=== PATIENT | male | born 2000 | race Caucasian/White ===

== ENCOUNTER 2018-07-17 13:53 | Emergency (ER) | payer BC ==
--- NOTE | 2018-07-17 14:27 | UC ---
Complaint Male HPI - HPI Summary HPI Summary: 18 yo male presents with urinary symptoms. He tells me that he is experiencing itching and "discomfort" at the end of his urethra over the last 4 days. Discomfort is most noticeable during urination. Has also been feeling more tired recently. He had unprotected sex about 2 weeks ago with a new partner - he has contacted her and she says she has no symptoms. Pt has had chlamydia in the past and says this feels similar. Denies fever, chills, hematuria, penile discharge, or testicular/scrotum tenderness. - History of Current Complaint Chief Complaint: UCGU Stated Complaint: PERSONAL Time Seen by Provider: 07/17/18 14:27 Hx Obtained From: Patient Severity Initially: Moderate Severity Currently: Moderate Pain Intensity: 5 Pain Scale Used: 0-10 Numeric - Allergies/Home Medications Allergies/Adverse Reactions: Allergies Allergy/AdvReac Type Severity Reaction Status Date / Time No Known Allergies Allergy Verified 07/17/18 14:09 Home Medications: Home Medications NK [No Home Medications Reported] 07/17/18 [History Confirmed 07/17/18] PMH/Surg Hx/FS Hx/Imm Hx - Additional Past Medical History Additional PMH: None - Surgical History Surgical History: Yes Surgery Procedure, Year, and Place: wisdom tooth removal, adenoidectomy - Family History Known Family History: Positive: None - Social History Occupation: Student Lives: Dormitory/Roommates Alcohol Use: Occasionally Substance Use Type: None Smoking Status (MU): Never Smoked Tobacco Review of Systems Constitutional: Negative Skin: Negative Respiratory: Negative Cardiovascular: Negative Gastrointestinal: Negative Genitourinary: Vaginal/Penile Itching Neurovascular: Negative Neurological: Negative Psychological: Negative All Other Systems Reviewed And Are Negative: Yes Physical Exam - Summary Physical Exam Summary: GENERAL: NAD. WDWN. No pain distress. SKIN: No rashes, sores, lesions, or open wounds. NECK: Supple. Nontender. No lymphadenopathy. CHEST: CTAB. No r/r/w. No accessory muscle use. Breathing comfortably and in no distress. CV: RRR. Without m/r/g. Pulses intact. Cap refill <2seconds ABDOMEN: Soft. NTTP. No distention or guarding. No CVA tenderness. Bowel sounds present NEURO: Alert. PSYCH: Age appropriate behavior. Triage Information Reviewed: Yes Vital Signs: Initial Vital Signs Temp 98.3 F 07/17/18 14:04 Pulse 59 07/17/18 14:04 Resp 18 07/17/18 14:04 BP 123/87 07/17/18 14:04 Pulse Ox 100 07/17/18 14:04 Laboratory Tests 07/17/18 14:34 POC Urine Color Yellow POC Urine Clarity Clear POC Urine pH 7.5 POC Ur Specif Hiller 1.015 POC Urine Protein Negative POC Ur Glucose (UA) Negative POC Urine Ketones Negative POC Urine Blood Negative POC Urine Nitrite Negative POC Urine Bilirubin Negative POC Urine Urobilinogen 0.2 POC U Leukocyte Esteras Negative Vital Signs Reviewed: Yes Male Genital Exam: Positive: Normal Genitalia, No Hernia, Other - No LAD. Negative: Epididymal Tenderness, Inguinal Tenderness, Scrotum Tenderness (R), Scrotum Tenderness (L), Testicular Tenderness (R), Testicular Tenderness (L), Urethral Discharge Complaint Male Course/Dx - Course Course Of Treatment: Options were discussed with the pt that his symptoms could be related to a GC/C infection. We discussed treatment now with testing or holding treatment and testing first. Pt elected to have treatment today and send urine for testing. He is also asking for HIV testing, but declines further labwork/STD testing. He was treated for GC/C with 250mg ceftriaxone and 1gm of azithromycin in the clinical course. Urine was sent. - Differential Dx/Diagnosis Provider Diagnoses: Dysuria. Unprotected intercourse Discharge - Sign-Out/Discharge Documenting (check all that apply): Patient Departure All imaging exams completed and their final reports reviewed: No Studies - Discharge Plan Condition: Stable Disposition: HOME Patient Education Materials: Safe Sex (ED) Referrals: No Primary Care Phys,NOPCP [Primary Care Provider] - Additional Instructions: If you develop a fever, shortness of breath, chest pain, new or worsening symptoms - please call your PCP or go to the ED. - Billing Disposition and Condition Condition: STABLE Disposition: Home
[2018-07-17] MEDS ORDERED: Azithromycin TAB* 250 MG PO ONE (14:44)
[2018-07-17] MEDS ORDERED: cefTRIAXone VIAL(*) 250 MG VIAL IM ONE (14:44)
[2018-07-17] MEDS ORDERED: Lidocaine 1% MPF* 2 ML VIAL INJ ONE (14:44)
[2018-07-17] MEDS ORDERED: Lidocaine 1%* 5 ML VIAL INJ ONE (14:48)
--- NOTE | 2018-07-20 19:41 | UC ---
- Progress Note Progress Note: neg gc, neg ch neg HIV no change ljj 07/20/2018 Discharge - Sign-Out/Discharge Documenting (check all that apply): Post-Discharge Follow Up All imaging exams completed and their final reports reviewed: No Studies - Discharge Plan Condition: Stable Disposition: HOME Patient Education Materials: Safe Sex (ED) Referrals: No Primary Care Phys,NOPCP [Primary Care Provider] - Additional Instructions: If you develop a fever, shortness of breath, chest pain, new or worsening symptoms - please call your PCP or go to the ED. - Billing Disposition and Condition Condition: STABLE Disposition: Home
== END 2018-07-17 15:07 | disposition home or self-care (01) ==
LOC: UCEAST 13:53
DX: R30.0 Dysuria (principal); Z86.19 Personal history of other infectious and parasitic diseases; Z72.51 High risk heterosexual behavior
CPT/HCPCS: 36415; 81003; 86703; 87491; 87591; 96372; 99202; A9270-GY; G0463; J0696

== ENCOUNTER 2018-10-09 16:33 | Emergency (ER) | payer BC ==
--- NOTE | 2018-10-09 16:56 | UC ---
Skin Complaint HPI - HPI Summary HPI Summary: 18 yo male presents with rash on groin. He tells me that on 10/07 he had unprotected intercourse with a new female partner. On the morning f 10/08 he woke with red spots in his groin and on his penis that were mildly itchy. Also thinks he noticed an enlarged lymph node in his groin. Today the spots are mostly healed and no itching. He was able to contact his partner and partner denied any symptoms or hx of STD. Pt denies fever, dysuria, hematuria, or drainage/pain from the rash. - History of Current Complaint Chief Complaint: UCSkin Time Seen by Provider: 10/09/18 16:56 Stated Complaint: RASH Hx Obtained From: Patient Onset/Duration: Sudden Onset Onset Severity: Mild Current Severity: Mild Pain Intensity: 2 Pain Scale Used: 0-10 Numeric - Allergy/Home Medications Allergies/Adverse Reactions: Allergies Allergy/AdvReac Type Severity Reaction Status Date / Time No Known Allergies Allergy Verified 10/09/18 16:52 PMH/Surg Hx/FS Hx/Imm Hx - Additional Past Medical History Additional PMH: None - Surgical History Surgical History: Yes Surgery Procedure, Year, and Place: wisdom tooth removal, adenoidectomy - Family History Known Family History: Positive: None - Social History Occupation: Student Lives: Dormitory/Roommates Alcohol Use: Occasionally Substance Use Type: None Smoking Status (MU): Never Smoked Tobacco Review of Systems All Other Systems Reviewed And Are Negative: Yes Constitutional: Positive: Negative Skin: Positive: Rash Respiratory: Positive: Negative Cardiovascular: Positive: Negative Gastrointestinal: Positive: Negative Genitourinary: Positive: Negative Neurovascular: Positive: Negative Neurological: Positive: Negative Psychological: Positive: Negative Physical Exam - Summary Physical Exam Summary: GENERAL: NAD. WDWN. No pain distress. SKIN: Genital: On penis there are three <5mm areas of linear erythema which appear like abrasion. On pubis there are scant erythematous pustules that are NTTP. No drainage, streaking, ulcerations, or ecchymosis. NECK: Supple. Nontender. No lymphadenopathy. CHEST: No accessory muscle use. Breathing comfortably and in no distress. CV: Pulses intact. Cap refill <2seconds NEURO: Alert. PSYCH: Age appropriate behavior. Triage Information Reviewed: Yes Vital Signs: Initial Vital Signs Temp 98.3 F 10/09/18 16:47 Pulse 63 10/09/18 16:47 Resp 16 10/09/18 16:47 BP 126/84 10/09/18 16:47 Pulse Ox 100 10/09/18 16:47 Vital Signs Reviewed: Yes Male Genital Exam: Positive: Other - B/L 5mm lymph nodes in inguinal region, mobile and nttp. See skin above for description of rash. Negative: Epididymal Tenderness, Inguinal Tenderness, Scrotum Tenderness (R), Scrotum Tenderness (L) , Testicular Tenderness (R), Testicular Tenderness (L), Urethral Discharge Course/Dx - Course Course Of Treatment: Suspect skin irritation from recent sexual intercourse. Pt says rash is better today compared to yesterday. Rash does not appear to be consistent with any infectious process. He declined STD testing today and elected to continue to monitor his symptoms and will f/u if his symptoms persist or worsen. - Diagnoses Provider Diagnosis: Skin irritation, High risk sexual behavior Discharge - Sign-Out/Discharge Documenting (check all that apply): Patient Departure All imaging exams completed and their final reports reviewed: No Studies - Discharge Plan Condition: Stable Disposition: HOME Patient Education Materials: Contact Dermatitis (DC) Referrals: No Primary Care Phys,NOPCP [Primary Care Provider] - Additional Instructions: If you develop a fever, shortness of breath, chest pain, new or worsening symptoms - please call your PCP or go to the ED. 1) Monitor your symptoms and refrain from using any creams/ointments to the area. I suspect your symptoms will go away in a couple of days - if they do not , please be rechecked - Billing Disposition and Condition Condition: STABLE Disposition: Home
== END 2018-10-09 17:12 | disposition home or self-care (01) ==
LOC: UCEAST 16:33
DX: L98.9 Disorder of the skin and subcutaneous tissue, unspecified (principal); Z72.51 High risk heterosexual behavior
CPT/HCPCS: 99211; G0463

== ENCOUNTER 2018-10-15 15:26 | Emergency (ER) | payer BC ==
--- NOTE | 2018-10-15 16:00 | UC ---
Throat Pain/Nasal Lui HPI - HPI Summary HPI Summary: 18-year-old male comes to clinic today with a chief complaint of one week of upper respiratory tract infection symptoms. Started out with yellow and green sputum and rhinorrhea. Last couple of days he started getting chills and sweats fevers. His toes started hurting in the last couple of days. Patient started with body aches also. No shortness of breath. Acetaminophen does help with the fevers and the body aches. - History of Current Complaint Chief Complaint: UCGeneralIllness Stated Complaint: URI Time Seen by Provider: 10/15/18 15:48 Pain Intensity: 6 - Allergies/Home Medications Allergies/Adverse Reactions: Allergies Allergy/AdvReac Type Severity Reaction Status Date / Time No Known Allergies Allergy Verified 10/15/18 15:37 PMH/Surg Hx/FS Hx/Imm Hx Previously Healthy: Yes - Surgical History Surgical History: Yes Surgery Procedure, Year, and Place: wisdom tooth removal, adenoidectomy - Family History Known Family History: Positive: None - Social History Alcohol Use: Occasionally Substance Use Type: None Smoking Status (MU): Never Smoked Tobacco Review of Systems All Other Systems Reviewed And Are Negative: Yes Constitutional: Positive: Fever, Chills Skin: Positive: Negative Eyes: Positive: Negative ENT: Positive: Sore Throat, Nasal Discharge, Sinus Congestion Respiratory: Positive: Negative Cardiovascular: Positive: Negative Gastrointestinal: Positive: Negative Motor: Positive: Negative Neurovascular: Positive: Negative Musculoskeletal: Positive: Negative Neurological: Positive: Negative Psychological: Positive: Negative Is Patient Immunocompromised?: No Physical Exam Triage Information Reviewed: Yes Appearance: No Pain Distress, Well-Nourished, Ill-Appearing - MILD Vital Signs: Initial Vital Signs Temp 98.7 F 10/15/18 15:31 Pulse 72 10/15/18 15:31 Resp 16 10/15/18 15:31 BP 140/84 10/15/18 15:31 Pulse Ox 99 10/15/18 15:31 Vital Signs Reviewed: Yes Eye Exam: Normal Eyes: Positive: Conjunctiva Clear ENT: Positive: Pharyngeal erythema, Nasal congestion, Nasal drainage, TM dull Neck exam: Normal Neck: Positive: Supple Respiratory: Positive: Lungs clear, Normal breath sounds, No respiratory distress Cardiovascular: Positive: RRR Musculoskeletal Exam: Normal Musculoskeletal: Positive: Strength Intact, ROM Intact Neurological Exam: Normal Neurological: Positive: Alert, Muscle Tone Normal Psychological Exam: Normal Psychological: Positive: Age Appropriate Behavior Skin Exam: Normal Throat Pain/Nasal Course/Dx - Course Course Of Treatment: DISCUSSED VIRAL VERSES BACTERIAL INFECTION AND THE ROLE OF ANTIBIOTICS. THE PATIENT WISHES TO BE ON ANTIBIOTIC AT THIS TIME. - Differential Dx/Diagnosis Provider Diagnosis: Sinusitis, Tonsillitis Discharge - Sign-Out/Discharge Documenting (check all that apply): Patient Departure All imaging exams completed and their final reports reviewed: No Studies - Discharge Plan Condition: Stable Disposition: HOME Patient Education Materials: Sinusitis (ED), Tonsillitis (ED) Referrals: [facility] [Provider Group] [facility] [Outside] Additional Instructions: FOLLOW UP WITH YOUR DOCTOR IF NOT COMPLETELY IMPROVED. GET RECHECKED FOR ANY WORSENING OF YOUR CONDITION OR QUESTIONS OR CONCERNS. - Billing Disposition and Condition Condition: STABLE Disposition: Home
== END 2018-10-15 16:09 | disposition home or self-care (01) ==
LOC: UCEAST 15:26
DX: J32.9 Chronic sinusitis, unspecified (principal); J03.90 Acute tonsillitis, unspecified
CPT/HCPCS: 87651; 99212; G0463

== ENCOUNTER 2019-02-23 21:21 | Emergency (ER) | payer BC ==
[2019-02-23 21:48] VITALS: BP 121/82
--- NOTE | 2019-02-23 21:59 | UC ---
Throat Pain/Nasal Lui HPI - HPI Summary HPI Summary: 18 yo male with sore throat x 2 days ? fever some post nasal drip right otalgia - History of Current Complaint Chief Complaint: UCRespiratory Stated Complaint: SORE THROAT Time Seen by Provider: 02/23/19 21:44 Hx Obtained From: Patient Onset/Duration: Gradual Onset Severity: Moderate Pain Intensity: 7 Pain Scale Used: 0-10 Numeric Associated Signs & Symptoms: Positive: Nasal Discharge, Fever - ? Related History: Prior ENT Surgery - adenoidectomy - Epiglottits Risk Factors Epiglottis Risk Factors: Negative - Allergies/Home Medications Allergies/Adverse Reactions: Allergies Allergy/AdvReac Type Severity Reaction Status Date / Time No Known Allergies Allergy Verified 02/23/19 21:50 Home Medications: Home Medications D-Methorphan/PE/Acetaminophen [Daytime Cold-Flu Relief Softgl] 1 cap PO Q8HR PRN 02/23/19 [History Confirmed 02/23/19] Ibuprofen [Advil] 400 mg PO Q8HR PRN 02/23/19 [History Confirmed 02/23/19] PMH/Surg Hx/FS Hx/Imm Hx Previously Healthy: Yes - Surgical History Surgical History: Yes Surgery Procedure, Year, and Place: wisdom tooth removal, addenoidectomy - Family History Known Family History: Positive: Hypertension - Social History Alcohol Use: Occasionally Substance Use Type: None Smoking Status (MU): Never Smoked Tobacco Review of Systems All Other Systems Reviewed And Are Negative: Yes Constitutional: Positive: Fever - spring Skin: Positive: Negative Eyes: Positive: Negative ENT: Positive: Sore Throat, Ear Ache Respiratory: Positive: Negative Cardiovascular: Positive: Negative Gastrointestinal: Positive: Negative Genitourinary: Positive: Negative Motor: Positive: Negative Neurovascular: Positive: Negative Musculoskeletal: Positive: Negative Neurological: Positive: Negative Psychological: Positive: Negative Physical Exam Triage Information Reviewed: Yes Appearance: Well-Appearing, No Pain Distress, Well-Nourished Vital Signs: Initial Vital Signs Temp 98.6 F 02/23/19 21:46 Pulse 66 02/23/19 21:46 Resp 18 02/23/19 21:46 BP 121/82 02/23/19 21:46 Pulse Ox 99 02/23/19 21:46 Vital Signs Reviewed: Yes Eyes: Positive: Conjunctiva Clear ENT: Positive: Hearing grossly normal, Pharyngeal erythema, Nasal congestion, TMs normal, Uvula midline. Negative: Nasal drainage, Tonsillar swelling, Tonsillar exudate, Trismus, Muffled voice, Dental tenderness, Sinus tenderness Neck: Positive: Supple, Enlarged Nodes @ - tender right cervical LNs>left Respiratory: Positive: Lungs clear, Normal breath sounds, No respiratory distress Cardiovascular: Positive: RRR Musculoskeletal: Positive: ROM Intact, No Edema Neurological Exam: Normal Neurological: Positive: Alert Psychological Exam: Normal Skin Exam: Normal Throat Pain/Nasal Course/Dx - Course Course Of Treatment: strep (-) - Differential Dx/Diagnosis Provider Diagnosis: Acute pharyngitis Discharge - Sign-Out/Discharge Documenting (check all that apply): Patient Departure All imaging exams completed and their final reports reviewed: No Studies - Discharge Plan Condition: Stable Disposition: HOME Patient Education Materials: Pharyngitis (ED) Referrals: No Primary Care Phys,NOPCP [Primary Care Provider] - Additional Instructions: tylenol or advil as needed for pain your strep test was neg recheck in 3 days if not better - Billing Disposition and Condition Condition: STABLE Disposition: Home
== END 2019-02-23 22:03 | disposition home or self-care (01) ==
LOC: UCEAST 21:21
DX: J02.9 Acute pharyngitis, unspecified (principal); R09.82 Postnasal drip; H92.01 Otalgia, right ear
CPT/HCPCS: 87651; 99211; G0463